=== PATIENT | male | born 1990 | race Caucasian/White ===

== ENCOUNTER 2016-05-19 22:33 | Emergency (ER) ==
[2016-05-19 22:47] VITALS: BP 118/78; TEMP 96.9; BMI 27.1
[2016-05-19] MEDS ORDERED: GI COCKTAIL PO STA (23:08)
[2016-05-19] MEDS ORDERED: CARAFATE PO STA (23:08)
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
[2016-05-19 23:20] LABS: BASOPHILS # (AUTO) 0.1 K/uL (0-0.2); BASOPHILS % (AUTO) 0.5 % (0.0-3.0); EOSINOPHILS # (AUTO) 0.7 K/ul (0.0-0.7); EOSINOPHILS % (AUTO) 6.7 % (0.0-7.0); HEMATOCRIT 46.2 % (42.0-52.0); HEMOGLOBIN 15.5 g/dl (14.0-18.0); IMMATURE GRANULOCYTE % (AUTO) 0.3 % (0.0-5.0); LYMPHOCYTES # (AUTO) 2.8 K/uL (0.60-3.4); LYMPHOCYTES % (AUTO) 27.7 (10.0-50.0); MEAN CORPUSCULAR HEMOGLOBIN 29.2 pg (27.0-31.0); MEAN CORPUSCULAR HGB CONC 33.5 (31.8-35.4); MEAN CORPUSCULAR VOLUME 87.2 fl (80.0-94.0); MONOCYTES # (AUTO) 0.8 K/uL (0.4-2.0); MONOCYTES % (AUTO) 7.7 (0-10); NEUTROPHILS # (AUTO) 5.7 K/ul (2.0-6.9); NEUTROPHILS % (AUTO) 57.1; PLATELET COUNT 204 10^3/uL (140-440); WHITE BLOOD COUNT 9.91 K/ul (4.2-10.2)
[2016-05-19 23:49] LABS: ALBUMIN 4.1 g/dL (3.4-5.0); ALBUMIN/GLOBULIN RATIO 1.17; ANION GAP 13.6; BILIRUBIN,TOTAL 0.37 mg/dL (0.00-1.20); BUN/CREATININE RATIO 24.71; CALCIUM 9.3 mg/dL (8.2-10.2); CREATININE 0.89 mg/dL (0.60-1.10); POTASSIUM 3.6 mmol/L (3.5-5.1); TOTAL PROTEIN 7.6 g/dL (6.4-8.2); TROPONIN I 0.019 ng/ml (0.0000-0.4000)
--- NOTE | 2016-05-20 00:06 | CT ---
EXAM: CT of the abdomen and pelvis without contrast. HISTORY: Epigastric pain. PROCEDURE: Contiguous axial CT images of the abdomen and pelvis without contrast with coronal and s agittal reformats. FINDINGS: The liver, gallbladder, pancreas, spleen, adrenal glands and kidneys are normal in appear ance. The abdominal aorta is normal in appearance. There is a nonspecific bowel gas pattern. No b owel obstruction. The appendix is not visualized. No free fluid or free air in the abdomen or pelv is. The bladder is adequately filled with no abnormality identified. The seminal vesicles and pros linn gland are unremarkable. There is a metallic foreign body in the soft tissues along the lateral margin of the proximal left femur measuring 0.5 cm. Impression: Nonspecific nonobstructive bowel gas pattern. 0.5 cm metallic foreign body in the soft tissues along the lateral margin of the proximal left femur . Correlate with history.
== END 2016-05-20 00:22 | disposition home or self-care (01) ==
LOC: ED 22:33
DX: K27.9 Peptic ulcer, site unspecified, unspecified as acute or chronic, without hemorrhage or perforation (principal); R07.9 Chest pain, unspecified
CPT/HCPCS: 36415; 80053; 82150; 82550; 83690; 84484; 85025; 85379; 93005; 93010; 99283

== ENCOUNTER 2016-05-26 07:24 | Outpatient (CLI) ==
--- NOTE | 2016-05-26 08:28 | US ---
Examination: Traore-scale and color Doppler ultrasonographic evaluation in the right upper quadrant. Comparison: CT scan performed on 05/19/2016. Reason for study: Abdominal pain. FINDINGS: Liver: The liver measures approximately 12.73 cm in the AP diameter with normal appearing echotexture and n ormal vascular flow. The portal vein is patent. There is no perihepatic free fluid. The gallbladder measures approximately 8.3 x 2.2 x 2.9 cm without sludging, gallstones, or polyps. The gallbladder wall measures 0.23 cm which is within normal limits. There is no pericholecystic in flammatory change. The common bile duct measures approximately 0.4 cm. No stones or polyps are seen within the visuali zed portion of the common bile duct. Pancreas: The pancreas is not well seen secondary to overlying bowel gas. Right Kidney: The right kidney measures approximately 9.5 x 4.0 x 3.8 cm with a normal appearing echotexture, no h ydronephrosis, and no nephrolithiasis. Impression: No acute findings are seen on the ultrasonographic evaluation of the right upper quadrant.
== END 2016-05-26 07:25 | disposition home or self-care (01) ==
LOC: RAD 07:24
PROVIDERS: ATTEND Nurse Practitioner Family
DX: R10.84 Generalized abdominal pain (principal)

== ENCOUNTER 2016-08-19 16:26 | Emergency (ER) ==
[2016-08-19 16:37] VITALS: BP 118/78; TEMP 97.1; BMI 25.7
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
== END 2016-08-19 17:17 | disposition home or self-care (01) ==
LOC: ED 16:26
DX: M54.5 Low back pain (principal); F17.210 Nicotine dependence, cigarettes, uncomplicated
CPT/HCPCS: 99282

== ENCOUNTER 2016-12-12 21:37 | Emergency (ER) ==
[2016-12-12 21:43] VITALS: BP 142/72; TEMP 97.5; BMI 25.1
[2016-12-12] MEDS ORDERED: SOLU-MEDROL 125 MG IM STA (22:01)
[2016-12-12] MEDS ORDERED: BENADRYL PO STA (22:02)
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
== END 2016-12-12 22:40 | disposition home or self-care (01) ==
LOC: ED 21:37
DX: L23.7 Allergic contact dermatitis due to plants, except food (principal)
CPT/HCPCS: 96372; 99282

== ENCOUNTER 2017-09-08 15:18 | Emergency (ER) | payer OTHER ==
[2017-09-08 15:19] VITALS: BMI 25.7
[2017-09-08 15:21] VITALS: BP 137/97; TEMP 99.8
--- NOTE | 2017-09-08 16:22 | CT ---
EXAM: CT right elbow without contrast. HISTORY: Right elbow pain, posterior swelling and redness. COMPARISON: None available. TECHNIQUE: Multiple axial images of the right elbow were obtained without intravenous contrast. Yahaira ges were reformatted in the sagittal and coronal planes. FINDINGS: Extensive coalescent edema noted in the posterior soft tissues of the elbow and proximal f orearm with subcutaneous edema extending more proximally from this. This does not appear to involve the muscular compartments or the elbow joint. No fracture or dislocation identified. No osseous liberty truction is seen. Joint spaces are maintained. No erosions are seen. IMPRESSION: Cellulitis of the posterior elbow/proximal forearm without abscess or osteomyelitis.
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
== END 2017-09-08 16:21 | disposition left against medical advice (07) ==
LOC: ED 15:18
DX: L03.113 Cellulitis of right upper limb (principal); S50.361A Insect bite (nonvenomous) of right elbow, initial encounter; W57.XXXA Bitten or stung by nonvenomous insect and other nonvenomous arthropods, initial encounter; F17.210 Nicotine dependence, cigarettes, uncomplicated
CPT/HCPCS: 36415; 80053; 85025; 87040; 99282

== ENCOUNTER 2018-04-29 22:24 | Emergency (ER) ==
[2018-04-29 22:31] VITALS: BP 107/65; TEMP 97.5; BMI 24.4
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
== END 2018-04-29 23:09 | disposition home or self-care (01) ==
LOC: ED 22:24
DX: J01.90 Acute sinusitis, unspecified (principal)
CPT/HCPCS: 99282

== ENCOUNTER 2018-09-17 22:03 | Emergency (ER) ==
[2018-09-17 22:05] VITALS: BP 150/96; TEMP 99.1; BMI 25.0
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
== END 2018-09-17 22:18 | disposition home or self-care (01) ==
LOC: ED 22:03
DX: K08.89 Other specified disorders of teeth and supporting structures (principal); K04.7 Periapical abscess without sinus; K02.7 Dental root caries
CPT/HCPCS: 99282